=== PATIENT | female | born 1935 | race Caucasian/White ===

== ENCOUNTER 2023-02-06 13:43 | Emergency (ER) | payer MEDICARE ==
[2023-02-06] MEDS ORDERED: Sodium Chloride 0.9% 10 ML Syringe FLUSH PRN (14:06)
[2023-02-06 15:19] LABS: ESTIMATED GFR 55 mL/min (>60)
== END 2023-02-06 16:21 | disposition home or self-care (01) ==
LOC: FB.ED 13:43
DX: S61.452A Open bite of left hand, initial encounter (principal); K21.9 Gastro-esophageal reflux disease without esophagitis; E78.5 Hyperlipidemia, unspecified; I10 Essential (primary) hypertension; R79.89 Other specified abnormal findings of blood chemistry; J44.9 Chronic obstructive pulmonary disease, unspecified; F17.290 Nicotine dependence, other tobacco product, uncomplicated; Z88.0 Allergy status to penicillin; Z88.1 Allergy status to other antibiotic agents; Z88.8 Allergy status to other drugs, medicaments and biological substances; W55.01XA Bitten by cat, initial encounter
CPT/HCPCS: 36415; 80053; 83880; 84484; 85025; 85610; 85730; 93005; 99283

== ENCOUNTER 2023-04-03 19:15 | Inpatient (IN) | payer MEDICARE ==
[2023-04-03] MEDS ORDERED: methylPREDNISolone Sodium Succinate 125 MG/2 ML SDV IM ONE (19:29)
[2023-04-03] MEDS ORDERED: Albuterol/Ipratropium 3.0-0.5 MG/3 ML Neb Soln NEB ONE ×2 (19:29→21:03)
[2023-04-03 20:14] LABS: BASOPHILS PERCENT AUTO 0.1 % (0.2-1.5); BLOOD UREA NITROGEN,BUN 17 mg/dL (7-18); BUN/CREATININE RATIO 21.3 (9-20); CALCIUM 9.1 mg/dL (8.6-10.2); CARBON DIOXIDE,CO2 28 mmol/L (21-32); CHLORIDE,CL 102 mmol/L (100-110); CREATININE 0.8 mg/dL (0.55-1.02); EOSINOPHILS ABSOLUTE AUTO 0.1 x10-3/uL (0.0-0.8); EOSINOPHILS PERCENT AUTO 0.9 % (0.6-8.1); ESTIMATED GFR 72 mL/min (>60); GLUCOSE RANDOM 117 mg/dL (80-116); HEMATOCRIT 38.1 % (34.2-48.2); HEMOGLOBIN 12.6 g/dL (11.4-15.5); LYMPHOCYTES ABSOLUTE AUTO 0.8 x10-3/uL (1.0-4.4); LYMPHOCYTES PERCENT AUTO 6.3 % (18.4-52.1); MEAN CORPUSCULAR HEMOGLOBIN 29.8 pg (23.9-33.9); MEAN CORPUSCULAR VOLUME 90.3 fL (76.7-100.5); MEAN PLATELET VOLUME 8.2 fL (7.1-12.4); MONOCYTES ABSOLUTE AUTO 1.4 x10-3/uL (0.3-1.0); MONOCYTES PERCENT AUTO 10.6 % (4.4-15.7); NEUTROPHILS ABSOLUTE AUTO 10.8 x10-3/uL (1.5-6.3); NEUTROPHILS PERCENT AUTO 82.1 % (30.8-76.2); PLATELET COUNT,PLT 280 x10(3)uL (151-488); POTASSIUM,K 3.5 mmol/L (3.5-5.3); RED BLOOD CELL COUNT 4.22 x10(6)uL (3.60-5.20); RED CELL DISTRIBUTION WIDTH 13.1 % (12.3-16.5); SODIUM,NA 139 mmol/L (135-145); WHITE BLOOD CELL COUNT,WBC 13.2 x10-3/uL (3.0-10.3)
[2023-04-03 20:21] LABS: A/G RATIO 0.7; ALANINE AMINOTRANSFERASE,ALT 23 U/L (12-36); ALBUMIN 3.2 g/dL (3.2-4.6); ALKALINE PHOSPHATASE 109 IU/L (56-112); ASPARTATE AMNIOTRANSFERASE,AST 29 IU/L (5-25); BILIRUBIN TOTAL 0.4 mg/dL (0.1-1.3); PROTEIN TOTAL,TP 7.6 g/dL (6.0-8.0)
[2023-04-03 20:27] LABS: TROPONIN I 5.7 pg/mL (4.0-60.3)
[2023-04-03 20:32] LABS: INR 0.98 (1.00-1.24); PROTHROMBIN TIME 10.1 sec (9.0-11.1)
[2023-04-03] MEDS ORDERED: Azithromycin 500 MG Tab PO ONE (20:50)
[2023-04-03] MEDS ORDERED: Albuterol 0.083% 2.5 MG/3 ML Neb Soln NEB PRN (21:41)
[2023-04-03] MEDS ORDERED: Ondansetron 4 MG/2 ML SDV IV PRN (21:41)
[2023-04-03] MEDS ORDERED: Sennosides/Docusate Sodium 50-8.6 MG Tab PO PRN (21:41)
[2023-04-03 22:03] LABS: LACTIC ACID 1.3 mmol/L (0.4-2.0)
[2023-04-03] MEDS: cefTRIAXone 1 GM Vial IVPUSH SCH (22:24)
[2023-04-03 22:39] LABS: BASE EXCESS VENOUS,POC 1 mmol/L (-2 - 3+); PCO2 VENOUS,POC 47 mmHg (41-51); PH VENOUS,POC 7.37 pH Units (7.32-7.43)
[2023-04-03 23:17] LABS: CORONAVIRUS COVID-19 NAA NEGATIVE (NEGATIVE); INFLUENZA A NAA NEGATIVE (NEGATIVE); INFLUENZA B NAA NEGATIVE (NEGATIVE); RESPIRATORY SYNCYTIAL VIR NAA NEGATIVE (NEGATIVE)
[2023-04-03] MEDS: Sodium Chloride 0.9% 1,000 ML IV SCH (23:30)
[2023-04-04 02:24] LABS: BILIRUBIN,URINE NEGATIVE (NEGATIVE); GLUCOSE,URINE NORMAL (NORMAL); KETONES,URINE NEGATIVE (NEGATIVE); LEUKOCYTE ESTERASE,URINE NEGATIVE (NEGATIVE); NITRITE,URINE NEGATIVE (NEGATIVE); OCCULT BLOOD,URINE NEGATIVE (NEGATIVE); PROTEIN,URINE TRACE mg/dL (NEGATIVE); UROBILINOGEN,URINE NORMAL (NEGATIVE)
[2023-04-04 02:28] LABS: APPEARANCE,URINE CLEAR (CLEAR); COLOR,URINE YELLOW (YELLOW); RBC,URINE 0-5 (0-5); SQUAMOUS EPITHELIAL CELLS,UR OCCASIONAL (NS,R,O); WBC,URINE 0-5 (0-5)
[2023-04-04 02:29] LABS: AMORPHOUS SEDIMENT,URINE OCCASIONAL; BACTERIA,URINE OCCASIONAL (NS); MUCUS,URINE OCCASIONAL (NS)
[2023-04-04] MEDS ORDERED: methylPREDNISolone Sodium Succinate 125 MG/2 ML SDV IVPUSH SCH (04:00)
[2023-04-04] MEDS: Albuterol/Ipratropium 3.0-0.5 MG/3 ML Neb Soln NEB SCH ×4 (06:20→20:16)
[2023-04-04 06:37] LABS: HEMATOCRIT 33.2 % (34.2-48.2); HEMOGLOBIN 11.1 g/dL (11.4-15.5); MEAN CORPUSCULAR HEMOGLOBIN 29.9 pg (23.9-33.9); MEAN CORPUSCULAR HGB CONC 33.5 g/dL (31.9-34.8); MEAN CORPUSCULAR VOLUME 89.2 fL (76.7-100.5); MEAN PLATELET VOLUME 8.1 fL (7.1-12.4); PLATELET COUNT,PLT 261 x10(3)uL (151-488); RED BLOOD CELL COUNT 3.72 x10(6)uL (3.60-5.20); RED CELL DISTRIBUTION WIDTH 12.8 % (12.3-16.5); WHITE BLOOD CELL COUNT,WBC 11.5 x10-3/uL (3.0-10.3)
[2023-04-04 06:52] LABS: A/G RATIO 0.7; ALANINE AMINOTRANSFERASE,ALT 21 U/L (12-36); ALBUMIN 2.6 g/dL (3.2-4.6); ALKALINE PHOSPHATASE 95 IU/L (56-112); ASPARTATE AMNIOTRANSFERASE,AST 21 IU/L (5-25); BILIRUBIN TOTAL 0.4 mg/dL (0.1-1.3); BLOOD UREA NITROGEN,BUN 18 mg/dL (7-18); BUN/CREATININE RATIO 25.7 (9-20); CALCIUM 8.9 mg/dL (8.6-10.2); CARBON DIOXIDE,CO2 26 mmol/L (21-32); CHLORIDE,CL 103 mmol/L (100-110); CREATININE 0.7 mg/dL (0.55-1.02); EST CRCL DRUG DOSING (CG) 47.33 mL/min; ESTIMATED GFR 85 mL/min (>60); GLUCOSE RANDOM 155 mg/dL (80-116); LYMPHOCYTES PERCENT MAN 3 % (13-37); MONOCYTES PERCENT MAN 2 % (4-12); POTASSIUM,K 3.6 mmol/L (3.5-5.3); PROTEIN TOTAL,TP 6.5 g/dL (6.0-8.0); SEG NEUTROPHILS PERCENT MAN 95 % (46-82); SODIUM,NA 138 mmol/L (135-145)
[2023-04-04] MEDS ORDERED: Azithromycin 500 MG in Sodium Chloride 0.9% 250 ML IV SCH (09:00)
[2023-04-04] MEDS ORDERED: Carboxymethylcellulose Sodium 0.5% Ophth Soln 15 ML Bottle EYEBOTH PRN (09:20)
[2023-04-04] MEDS: Aspirin 81 MG Tab.EC PO SCH (09:54)
[2023-04-04] MEDS: Pantoprazole 40 MG Tab.CR PO SCH (09:54)
[2023-04-04] MEDS: Multivitamin Tab PO SCH (09:54)
[2023-04-04] MEDS: Metoprolol Tartrate 50 MG Tab PO SCH ×2 (09:54→20:18)
[2023-04-04] MEDS: Citalopram 20 MG Tab PO SCH (09:54)
[2023-04-04] MEDS: Sodium Chloride 0.9% 1,000 ML IV SCH ×2 (09:55→20:07)
[2023-04-04] MEDS: amLODIPine 5 MG Tab PO SCH (09:55)
[2023-04-04] MEDS: Acetaminophen 650 MG Tab.ER PO SCH (09:55)
[2023-04-04] MEDS: methylPREDNISolone Sodium Succinate 40 MG/1 ML SDV IVPUSH SCH (09:56)
[2023-04-04] MEDS: Enoxaparin 40 MG/0.4 ML Syringe SUBCUT SCH (10:37)
[2023-04-04] MEDS: Ibuprofen 200 MG Tab PO PRN (19:53)
[2023-04-04] MEDS: Gabapentin 100 MG Cap PO SCH (20:35)
[2023-04-04] MEDS: Simvastatin 10 MG Tab PO SCH (20:36)
[2023-04-04] MEDS: Azithromycin 500 MG in Sodium Chloride 0.9% 250 ML IV SCH (20:47)
[2023-04-04] MEDS: cefTRIAXone 1 GM Vial IVPUSH SCH (22:54)
[2023-04-04] MEDS: guaiFENesin/Dextromethorphan 100-10 MG/5 ML Soln 5 ML Cup PO PRN (23:15)
[2023-04-04] MEDS: Acetaminophen 325 MG Tab PO PRN (23:39)
[2023-04-05] MEDS: Ibuprofen 200 MG Tab PO PRN ×2 (03:10→21:36)
[2023-04-05] MEDS: Albuterol/Ipratropium 3.0-0.5 MG/3 ML Neb Soln NEB SCH (06:20)
[2023-04-05] MEDS: Pantoprazole 40 MG Tab.CR PO SCH (06:34)
[2023-04-05 06:37] LABS: HEMATOCRIT 32.6 % (34.2-48.2); HEMOGLOBIN 10.8 g/dL (11.4-15.5); MEAN CORPUSCULAR HEMOGLOBIN 29.6 pg (23.9-33.9); MEAN CORPUSCULAR HGB CONC 33.1 g/dL (31.9-34.8); MEAN CORPUSCULAR VOLUME 89.4 fL (76.7-100.5); MEAN PLATELET VOLUME 7.7 fL (7.1-12.4); PLATELET COUNT,PLT 290 x10(3)uL (151-488); RED BLOOD CELL COUNT 3.65 x10(6)uL (3.60-5.20); RED CELL DISTRIBUTION WIDTH 13.1 % (12.3-16.5); WHITE BLOOD CELL COUNT,WBC 17.2 x10-3/uL (3.0-10.3)
[2023-04-05 06:45] LABS: BLOOD UREA NITROGEN,BUN 21 mg/dL (7-18); BUN/CREATININE RATIO 23.3 (9-20); CALCIUM 8.8 mg/dL (8.6-10.2); CARBON DIOXIDE,CO2 25 mmol/L (21-32); CHLORIDE,CL 105 mmol/L (100-110); CREATININE 0.9 mg/dL (0.55-1.02); EST CRCL DRUG DOSING (CG) 36.81 mL/min; ESTIMATED GFR 63 mL/min (>60); GLUCOSE RANDOM 124 mg/dL (80-116); POTASSIUM,K 3.9 mmol/L (3.5-5.3); SODIUM,NA 138 mmol/L (135-145)
[2023-04-05 06:53] LABS: BAND PERCENT MAN 5 % (0-6); LYMPHOCYTES PERCENT MAN 8 % (13-37); MONOCYTES PERCENT MAN 5 % (4-12); SEG NEUTROPHILS PERCENT MAN 82 % (46-82)
[2023-04-05] MEDS: Sodium Chloride 0.9% 1,000 ML IV SCH (07:23)
[2023-04-05] MEDS: Acetaminophen 650 MG Tab.ER PO SCH (08:24)
[2023-04-05] MEDS: Aspirin 81 MG Tab.EC PO SCH (08:24)
[2023-04-05] MEDS: Citalopram 20 MG Tab PO SCH (08:24)
[2023-04-05] MEDS: Metoprolol Tartrate 50 MG Tab PO SCH ×2 (08:25→20:52)
[2023-04-05] MEDS: methylPREDNISolone Sodium Succinate 40 MG/1 ML SDV IVPUSH SCH (08:26)
[2023-04-05] MEDS: amLODIPine 5 MG Tab PO SCH (08:26)
[2023-04-05] MEDS: Enoxaparin 40 MG/0.4 ML Syringe SUBCUT SCH (08:26)
[2023-04-05] MEDS: Multivitamin Tab PO SCH (08:27)
[2023-04-05] MEDS: guaiFENesin/Dextromethorphan 100-10 MG/5 ML Soln 5 ML Cup PO PRN ×3 (08:40→22:43)
[2023-04-05] MEDS ORDERED: Albuterol/Ipratropium 3.0-0.5 MG/3 ML Neb Soln NEB PRN (08:43)
[2023-04-05] MEDS ORDERED: Albuterol 0.083% 2.5 MG/3 ML Neb Soln NEB PRN (08:43)
[2023-04-05] MEDS: Sodium Chloride 0.9% 10 ML Syringe FLUSH PRN ×3 (09:45→21:30)
[2023-04-05] MEDS: Saccharomyces Boulardii (Probiotic) 250 MG Cap PO SCH ×2 (10:31→20:51)
[2023-04-05] MEDS: Gabapentin 100 MG Cap PO SCH (20:51)
[2023-04-05] MEDS: Simvastatin 10 MG Tab PO SCH (20:52)
[2023-04-05] MEDS: Azithromycin 500 MG in Sodium Chloride 0.9% 250 ML IV SCH ×2 (20:59→21:00)
[2023-04-05] MEDS ORDERED: Azithromycin 500 MG Tab PO ONE (21:47)
[2023-04-05] MEDS: cefTRIAXone 1 GM Vial IVPUSH SCH (22:03)
[2023-04-06] MEDS: Pantoprazole 40 MG Tab.CR PO SCH (06:51)
[2023-04-06 07:08] LABS: HEMATOCRIT 35.2 % (34.2-48.2); HEMOGLOBIN 11.8 g/dL (11.4-15.5); MEAN CORPUSCULAR HEMOGLOBIN 29.7 pg (23.9-33.9); MEAN CORPUSCULAR HGB CONC 33.5 g/dL (31.9-34.8); MEAN CORPUSCULAR VOLUME 88.8 fL (76.7-100.5); MEAN PLATELET VOLUME 7.5 fL (7.1-12.4); PLATELET COUNT,PLT 333 x10(3)uL (151-488); RED BLOOD CELL COUNT 3.96 x10(6)uL (3.60-5.20); RED CELL DISTRIBUTION WIDTH 13.4 % (12.3-16.5); WHITE BLOOD CELL COUNT,WBC 18.4 x10-3/uL (3.0-10.3)
[2023-04-06 07:16] LABS: BLOOD UREA NITROGEN,BUN 22 mg/dL (7-18); BUN/CREATININE RATIO 24.4 (9-20); CALCIUM 9.3 mg/dL (8.6-10.2); CARBON DIOXIDE,CO2 24 mmol/L (21-32); CHLORIDE,CL 106 mmol/L (100-110); CREATININE 0.9 mg/dL (0.55-1.02); EST CRCL DRUG DOSING (CG) 36.81 mL/min; ESTIMATED GFR 63 mL/min (>60); GLUCOSE RANDOM 106 mg/dL (80-116); POTASSIUM,K 3.6 mmol/L (3.5-5.3); SODIUM,NA 140 mmol/L (135-145)
[2023-04-06 07:30] LABS: BAND PERCENT MAN 3 % (0-6); LYMPHOCYTES PERCENT MAN 5 % (13-37); MONOCYTES PERCENT MAN 4 % (4-12); SEG NEUTROPHILS PERCENT MAN 88 % (46-82)
[2023-04-06] MEDS: Saccharomyces Boulardii (Probiotic) 250 MG Cap PO SCH ×2 (08:45→20:38)
[2023-04-06] MEDS: Aspirin 81 MG Tab.EC PO SCH (08:46)
[2023-04-06] MEDS: amLODIPine 5 MG Tab PO SCH (08:46)
[2023-04-06] MEDS: Acetaminophen 650 MG Tab.ER PO SCH (08:47)
[2023-04-06] MEDS: Metoprolol Tartrate 50 MG Tab PO SCH ×2 (08:47→20:40)
[2023-04-06] MEDS: Citalopram 20 MG Tab PO SCH (08:48)
[2023-04-06] MEDS: Enoxaparin 40 MG/0.4 ML Syringe SUBCUT SCH (08:48)
[2023-04-06] MEDS: methylPREDNISolone Sodium Succinate 40 MG/1 ML SDV IVPUSH SCH (08:49)
[2023-04-06] MEDS: Multivitamin Tab PO SCH (08:49)
[2023-04-06] MEDS: Sodium Chloride 0.9% 10 ML Syringe FLUSH PRN ×4 (08:52→23:25)
[2023-04-06] MEDS: Tiotropium BR/Olodaterol HCL 4 GM Inhalation Spray 2.5mcg/1 dose; 10 doses INH SCH (09:39)
[2023-04-06] MEDS: Doxycycline 100 MG in Sodium Chloride 0.9% 100 ML IV SCH ×2 (10:21→21:32)
[2023-04-06] MEDS ORDERED: hydrOXYzine HCl 25 MG Tab PO PRN (12:46)
[2023-04-06] MEDS: Gabapentin 100 MG Cap PO SCH (20:39)
[2023-04-06] MEDS: Simvastatin 10 MG Tab PO SCH (20:39)
[2023-04-06] MEDS: Acetaminophen 325 MG Tab PO PRN (22:32)
[2023-04-06] MEDS: cefTRIAXone 1 GM Vial IVPUSH SCH (23:20)
[2023-04-07] MEDS: Pantoprazole 40 MG Tab.CR PO SCH (06:41)
[2023-04-07 06:50] LABS: BASOPHILS PERCENT AUTO 0.1 % (0.2-1.5); EOSINOPHILS PERCENT AUTO 0.1 % (0.6-8.1); HEMATOCRIT 38.1 % (34.2-48.2); HEMOGLOBIN 12.7 g/dL (11.4-15.5); LYMPHOCYTES ABSOLUTE AUTO 1.3 x10-3/uL (1.0-4.4); LYMPHOCYTES PERCENT AUTO 8.9 % (18.4-52.1); MEAN CORPUSCULAR HEMOGLOBIN 29.8 pg (23.9-33.9); MEAN CORPUSCULAR HGB CONC 33.2 g/dL (31.9-34.8); MEAN CORPUSCULAR VOLUME 89.6 fL (76.7-100.5); MEAN PLATELET VOLUME 7.7 fL (7.1-12.4); MONOCYTES ABSOLUTE AUTO 1.3 x10-3/uL (0.3-1.0); MONOCYTES PERCENT AUTO 9.2 % (4.4-15.7); NEUTROPHILS ABSOLUTE AUTO 11.5 x10-3/uL (1.5-6.3); NEUTROPHILS PERCENT AUTO 81.7 % (30.8-76.2); PLATELET COUNT,PLT 365 x10(3)uL (151-488); RED BLOOD CELL COUNT 4.25 x10(6)uL (3.60-5.20); RED CELL DISTRIBUTION WIDTH 13.4 % (12.3-16.5); WHITE BLOOD CELL COUNT,WBC 14.1 x10-3/uL (3.0-10.3)
[2023-04-07 06:58] LABS: BLOOD UREA NITROGEN,BUN 19 mg/dL (7-18); BUN/CREATININE RATIO 23.8 (9-20); CALCIUM 9.1 mg/dL (8.6-10.2); CARBON DIOXIDE,CO2 28 mmol/L (21-32); CHLORIDE,CL 105 mmol/L (100-110); CREATININE 0.8 mg/dL (0.55-1.02); EST CRCL DRUG DOSING (CG) 41.42 mL/min; ESTIMATED GFR 72 mL/min (>60); GLUCOSE RANDOM 93 mg/dL (80-116); POTASSIUM,K 3.4 mmol/L (3.5-5.3); SODIUM,NA 140 mmol/L (135-145)
[2023-04-07] MEDS: Citalopram 20 MG Tab PO SCH (08:41)
[2023-04-07] MEDS: Saccharomyces Boulardii (Probiotic) 250 MG Cap PO SCH ×2 (08:42→20:30)
[2023-04-07] MEDS: Multivitamin Tab PO SCH (08:43)
[2023-04-07] MEDS: Aspirin 81 MG Tab.EC PO SCH (08:43)
[2023-04-07] MEDS: Enoxaparin 40 MG/0.4 ML Syringe SUBCUT SCH (08:43)
[2023-04-07] MEDS: Metoprolol Tartrate 50 MG Tab PO SCH ×2 (08:46→20:30)
[2023-04-07] MEDS: amLODIPine 5 MG Tab PO SCH (08:46)
[2023-04-07] MEDS: Tiotropium BR/Olodaterol HCL 4 GM Inhalation Spray 2.5mcg/1 dose; 10 doses INH SCH (08:47)
[2023-04-07] MEDS: Acetaminophen 650 MG Tab.ER PO SCH (08:47)
[2023-04-07] MEDS: Doxycycline 100 MG Tab PO SCH ×2 (09:00→20:29)
[2023-04-07] MEDS: guaiFENesin 600 MG Tab.ER PO SCH ×2 (10:29→20:29)
[2023-04-07] MEDS: Gabapentin 100 MG Cap PO SCH (20:30)
[2023-04-07] MEDS: Simvastatin 10 MG Tab PO SCH (20:30)
[2023-04-07] MEDS ORDERED: cefTRIAXone 1 GM Vial IM ONE (21:00)
[2023-04-08] MEDS: Acetaminophen 325 MG Tab PO PRN (01:19)
[2023-04-08] MEDS: Pantoprazole 40 MG Tab.CR PO SCH (06:38)
[2023-04-08 06:51] LABS: HEMATOCRIT 38.4 % (34.2-48.2); MEAN CORPUSCULAR HEMOGLOBIN 30.1 pg (23.9-33.9); MEAN CORPUSCULAR HGB CONC 33.9 g/dL (31.9-34.8); MEAN CORPUSCULAR VOLUME 88.7 fL (76.7-100.5); MEAN PLATELET VOLUME 7.2 fL (7.1-12.4); PLATELET COUNT,PLT 388 x10(3)uL (151-488); RED BLOOD CELL COUNT 4.33 x10(6)uL (3.60-5.20); RED CELL DISTRIBUTION WIDTH 13.4 % (12.3-16.5); WHITE BLOOD CELL COUNT,WBC 11.9 x10-3/uL (3.0-10.3)
[2023-04-08 07:50] LABS: EOSINOPHILS PERCENT MAN 2 % (0-5); LYMPHOCYTES PERCENT MAN 15 % (13-37); MONOCYTES PERCENT MAN 9 % (4-12); SEG NEUTROPHILS PERCENT MAN 74 % (46-82)
[2023-04-08] MEDS: Aspirin 81 MG Tab.EC PO SCH (09:03)
[2023-04-08] MEDS: guaiFENesin 600 MG Tab.ER PO SCH (09:04)
[2023-04-08] MEDS: amLODIPine 5 MG Tab PO SCH (09:04)
[2023-04-08] MEDS: Acetaminophen 650 MG Tab.ER PO SCH (09:04)
[2023-04-08] MEDS: Citalopram 20 MG Tab PO SCH (09:04)
[2023-04-08] MEDS: Enoxaparin 40 MG/0.4 ML Syringe SUBCUT SCH (09:05)
[2023-04-08] MEDS: Tiotropium BR/Olodaterol HCL 4 GM Inhalation Spray 2.5mcg/1 dose; 10 doses INH SCH (09:05)
[2023-04-08] MEDS: Metoprolol Tartrate 50 MG Tab PO SCH (09:05)
[2023-04-08] MEDS: Doxycycline 100 MG Tab PO SCH (09:06)
[2023-04-08] MEDS: Multivitamin Tab PO SCH (09:06)
[2023-04-08] MEDS: Saccharomyces Boulardii (Probiotic) 250 MG Cap PO SCH (09:10)
== END 2023-04-08 12:42 | disposition home health service (06) | DRG 190 ==
LOC: FB.ED 19:15 → FB.MS 21:41
PROVIDERS: ADMIT Emergency Medicine; ATTEND Family Medicine
DX: J44.0 Chronic obstructive pulmonary disease with (acute) lower respiratory infection (principal); J18.9 Pneumonia, unspecified organism; J44.1 Chronic obstructive pulmonary disease with (acute) exacerbation; E78.5 Hyperlipidemia, unspecified; K21.9 Gastro-esophageal reflux disease without esophagitis; I10 Essential (primary) hypertension; Z20.822 Contact with and (suspected) exposure to COVID-19; E78.00 Pure hypercholesterolemia, unspecified; F17.200 Nicotine dependence, unspecified, uncomplicated; Z88.8 Allergy status to other drugs, medicaments and biological substances; Z88.0 Allergy status to penicillin; Z79.82 Long term (current) use of aspirin; Z79.899 Other long term (current) drug therapy
CPT/HCPCS: 0241U; 36415; 71045; 80048; 80053; 81001; 83605; 83880; 84484; 85025; 85610; 85730; 86140; 87040; 87070; 87205; 93005; 94150; 94640; 94669; 96372; 99285; 99222; 99232; 99238; A9270-GY; J0456; J0696; J1650; J2920; J2930; J3490; J7030; J7050; J7620